=== PATIENT | male | born 1955 | race Caucasian/White ===

== ENCOUNTER 2018-10-28 11:42 | Observation (INO) | payer MEDICARE, OTHER ==
[~2018-10-28 11:42] MED LIST: MOTRIN 800800 MG/TAB PO; ROBAXIN 50500 MG/TAB
--- NOTE | 2018-10-28 13:45 | NUR ---
Patient arrived to the Medical floor room 315 from [facility] around this time, he is alert/oriented, vital signs stable/ blood pressures slightly elevated, he reports his left flank pain 2-3/ 10 at this time, denies needing any pain medication or intervention for pain, I have notified of his arrival and stated he would be up soon to see him and place orders, patient changed into a gown, kept NPO for likely surgery, verbalized understanding of plan of care and denies other needs at this time
[2018-10-28] MEDS ORDERED: FLOMAX 0.40.4 MG/CAP PO (14:54)
[2018-10-28] MEDS ORDERED: VITAMIN D 1001000 IU (15:15)
--- NOTE | 2018-10-28 15:28 | NUR ---
Patient is going to surgery at this time, he has signed infomred consent
--- NOTE | 2018-10-28 18:00 | NUR ---
patient arrived back to Medical floor from PACU, alert/oriented, vital signs stable, pain controlled at this time, he has been up and voided urine, going to try and eat and drink a this time, family present in the room, denies othe needs, will continue to mnitor, plans to discharge home once criteria met
[2018-10-28 18:06] VITALS: BP 147/62; PULSE 79; TEMP 98.2
[2018-10-28 18:21] VITALS: BP 149/85; PULSE 72
[2018-10-28 18:36] VITALS: BP 149/93; PULSE 72
--- NOTE | 2018-10-28 18:40 | NUR ---
continues to do well post-op, pain controlled, vitals stable/ HTN, tolerating PO intake well
[2018-10-28 18:51] VITALS: BP 144/92; PULSE 71
--- NOTE | 2018-10-28 19:15 | NUR ---
patient has met dischage criteria, denies pain, voiding urine without difficulty, eating and dinking, discharge intructions reviewd with the patient, instructed to follow up with in 1 week, script for Nica provided, he is leaving with his son, I personally escorted him out the door
== END 2018-10-28 19:16 | disposition home or self-care (01) ==
LOC: MEDICAL 11:42
PROVIDERS: ADMIT Urology
DX: N20.2 Calculus of kidney with calculus of ureter (principal); N40.0 Benign prostatic hyperplasia without lower urinary tract symptoms
CPT/HCPCS: C1769; C2617; G0378; G0379; J0690; J1100; J1885; J2405; J2704; J3010; J7030; Q9967